=== PATIENT | male | born 1975 | race Caucasian/White ===

== ENCOUNTER → 2016-09-28 | Outpatient (CLI) | payer OTHER ==
--- NOTE | 2016-09-29 03:02 | REP ---
Clinical: Cough . Comparison: None . Technique: PA and lateral. Findings: The mediastinum and cardiac silhouette are normal. The lung phoenix are clear and without acute consolidation, effusion, or pneumothorax. The skeletal structures are intact and normal. Impression: 1. No acute cardiopulmonary process. Signed by Jhonatan Cerrato MD 09/29/2016 02:53 A
== END ==
LOC: M WUC 17:07
PROVIDERS: ATTEND Physician Assistant
DX: R05 Cough (principal)

== ENCOUNTER 2017-10-12 21:09 | Emergency (ER) | payer OTHER ==
[2017-10-12] MEDS: DOXYCYCLINE HYCLATE 100 MG TAB PO (22:30)
== END 2017-10-12 22:34 | disposition home or self-care (01) ==
LOC: M ED 21:09
DX: S20.461A Insect bite (nonvenomous) of right back wall of thorax, initial encounter (principal); W57.XXXA Bitten or stung by nonvenomous insect and other nonvenomous arthropods, initial encounter; Y92.9 Unspecified place or not applicable; Y93.9 Activity, unspecified; Y99.9 Unspecified external cause status
CPT/HCPCS: 99282